=== PATIENT | female | born 1995 | race Caucasian/White ===

== ENCOUNTER 2019-05-18 10:46 | Emergency (ER) | payer MEDICAID ==
[~2019-05-18] VITALS: Ht 165.1 cm; Wt 75.7 kg
[2019-05-18 10:57] VITALS: BP 120/85
--- NOTE | 2019-05-18 12:00 | NUR ---
Pt presents to ED with c/o abdominal cramping & vaginal bleeding for approx 4 days. Pt reported an on 02/24/19. LMP 05/14/19. A1 L0. Pt denies any nausea or vomiting episodes. VSS.
[2019-05-18] MEDS ORDERED: KETOROLAC 60 MG/2 ML VIAL IM ONE (12:20)
--- NOTE | 2019-05-18 12:20 | NUR ---
DR MCKAY RE EVALUATING PT AT BEDSIDE.
--- NOTE | 2019-05-18 12:46 | NUR ---
IM MEDS GIVEN-NADR AT THIS TIME
[2019-05-18 13:25] VITALS: BP 112/65
--- NOTE | 2019-05-18 13:41 | NUR ---
Patient discharged with v/s stable. Written and verbal after care instructions given and explained. Patient alert, oriented and verbalized understanding of instructions. Ambulatory with steady gait. All questions addressed prior to discharge. ID band removed. Patient advised to follow up with PMD. Rx of Naprosyn and Provera given. Patient educated on indication of medication including possible reaction and side effects. Opportunity to ask questions provided and answered.
== END 2019-05-18 13:41 | disposition home or self-care (01) ==
LOC: MED 10:46
DX: N94.6 Dysmenorrhea, unspecified (principal); R51 Headache
CPT/HCPCS: 81025; 96372; 99283; J1885